=== PATIENT | male | born 1965 | race African-American/Black ===

== ENCOUNTER 2021-02-13 09:23 | Emergency (ER) | payer SELFPAY ==
[~2021-02-13] VITALS: Ht 172.7 cm; Wt 75.0 kg
[2021-02-13] MEDS ORDERED: DIPHENHYDRAMINE 50MG CAPSULE PO STA (09:44)
[2021-02-13] MEDS ORDERED: HALOPERIDOL LACTATE 5MG/ML VIAL IM STA (09:44)
[2021-02-13] MEDS ORDERED: DIPHENHYDRAMINE 50MG/ML VIAL IM ONE (10:00)
[2021-02-13 11:39] LABS: BASOPHILS % 1.3 % (0.0-2.0); EOSINOPHILS % 1.2 % (0.0-5.0); HEMATOCRIT. 43.9 % (42.0-52.0); LYMPHOCYTES % 50.9 % (20.0-50.0); MEAN CORPUSCULAR HEMOGLOBIN 31.1 pg (28.0-32.0); MEAN CORPUSCULAR VOLUME 91.2 fL (80.0-94.0); MEAN PLATELET VOLUME 7.6 fl (7.4-10.4); MONOCYTES % 6.3 % (2.0-8.0); NEUTROPHILS % 40.3 % (40.0-76.0); PLATELET 245 x1000/uL (130-400); RED BLOOD CELL COUNT 4.81 mill/uL (4.7-6.1)
[2021-02-13 11:43] LABS: CHLORIDE 114 mEq/L (98-107)
[2021-02-13 11:47] LABS: ETHANOL BLOOD 252 mg/dL
[2021-02-13 12:02] LABS: CLARITY URINE CLEAR (CLEAR); COLOR URINE YELLOW (YELLOW); KETONES URINE NEGATIVE (NEGATIVE); LEUKOCYTE ESTERASE URINE NEGATIVE (NEGATIVE); NITRITE URINE NEGATIVE (NEGATIVE); OCCULT BLOOD URINE NEGATIVE (NEGATIVE); PH URINE 5.5 (4.5-8.0); PROTEIN URINE NEGATIVE (NEGATIVE); SPECIFIC GRAVITY URINE 1.008 (1.005-1.030); UROBILINOGEN URINE 0.2 E.U./dL (0.2-1.0)
[2021-02-13 12:17] LABS: *BARBITURATES SCREEN URINE NEGATIVE (NEGATIVE); *BENZODIAZEPINES SCREEN URINE NEGATIVE (NEGATIVE); *COCAINE SCREEN URINE NEGATIVE (NEGATIVE); METHADONE URINE SCREEN NEGATIVE (NEGATIVE); OPIATES URINE SCREEN NEGATIVE (NEGATIVE)
[2021-02-13 12:18] LABS: *AMPHETAMINES SCREEN URINE NEGATIVE (NEGATIVE); CANNABINOID URINE SCREEN NEGATIVE (NEGATIVE); PHENCYCLIDINE URINE SCREEN NEGATIVE (NEGATIVE)
[2021-02-13] MEDS ORDERED: HALOPERIDOL 5MG TABLET PO PRN (13:30)
[2021-02-13] MEDS ORDERED: LORAZEPAM 1MG TABLET PO PRN (13:30)
[2021-02-13] MEDS ORDERED: DIPHENHYDRAMINE 25MG CAPSULE PO PRN (13:30)
[2021-02-13] MEDS ORDERED: LORAZEPAM 2MG/ML CPJ IV PRN (13:45)
[2021-02-13] MEDS ORDERED: HALOPERIDOL LACTATE 5MG/ML VIAL IM PRN (13:45)
[2021-02-13] MEDS ORDERED: DIPHENHYDRAMINE 50MG/ML VIAL IM PRN (13:45)
[2021-02-14 10:45] VITALS: BP 121/78
== END 2021-02-14 11:07 | disposition home or self-care (01) ==
LOC: ER 09:23
DX: F10.129 Alcohol abuse with intoxication, unspecified (principal); F93.8 Other childhood emotional disorders; R45.851 Suicidal ideations; Z78.1 Physical restraint status; R94.31 Abnormal electrocardiogram [ECG] [EKG]; Y90.8 Blood alcohol level of 240 mg/100 ml or more; Z20.822 Contact with and (suspected) exposure to COVID-19; Z75.1 Person awaiting admission to adequate facility elsewhere
CPT/HCPCS: 36415; 80053; 80305; 80307; 80320; 80329; 81003; 82962; 85025; 93005; 96372; 99285; C9803; J1200; J1630; U0003; U0005; Q0163; G0480